=== PATIENT | female | born 1955 | race Caucasian/White ===

== ENCOUNTER 2018-11-08 12:29 | Outpatient (CLI) | payer MEDICARE ==
--- NOTE | 2018-11-08 15:12 | NM ---
Radionucleotide hepatobiliary scan and gallbladder ejection fraction HISTORY: Right upper quadrant pain. Acute cholecystitis. FINDINGS: Early images show physiologic uptake of radiotracer throughout the hepatic parenchyma. Upta ke first seen within the small bowel at 17 minutes. Uptake within the gallbladder at 37 minutes. After administration of fatty meal, there is progressive excretion of radiotracer from the gallbladde r to the small bowel. Ejection fraction calculated at 93%. IMPRESSION: Hepatobiliary scan. Normal gallbladder ejection fraction.
== END 2018-11-08 12:30 | disposition home or self-care (01) ==
LOC: NM 12:29
PROVIDERS: ATTEND Specialist
DX: K81.0 Acute cholecystitis (principal)
CPT/HCPCS: 78227; A9537

== ENCOUNTER 2025-01-30 15:44 | Emergency (ER) | payer MEDICARE ==
[~2025-01-30 15:44] MED LIST: Iopamidol-370 76% 500 ML MDV (1 ML CHARGE) ONE
[2025-01-30] MEDS ORDERED: Ondansetron PF 4 MG/2 ML Vial ONE ×2 (16:14→17:56)
[2025-01-30] MEDS ORDERED: Ketorolac Tromethamine 30 MG (1 mL) VIAL ONE ×2 (16:14→17:56)
[2025-01-30] MEDS ORDERED: Famotidine/PF 20 mg/2ml Vial ONE (16:26)
[2025-01-30 16:34] LABS: #Basophils 0.06 10x3/uL (0.0-0.2); #Eosinophils 0.46 10x3/uL (0.0-0.7); #Monocytes 0.46 10x3/uL (0.11-0.59); #Neutrophils 2.83 10x3/uL (1.40-6.50); %Basophils 1.0 % (0.0-1.0); %Eosinophils 7.9 % (0.0-10.0); %Lymphocytes 34.0 % (21.0-51.0); %Monocytes 7.9 % (0.0-10.0); %Neutrophils 49.0 % (42.0-75.0); Hematocrit 39.0 % (36.0-47.0); Hemoglobin 13.1 g/dL (12.0-16.0); Mean Corpuscular Hemoglobin 30.5 pg (27.0-31.0); Mean Corpuscular Volume 90.7 fL (78.0-98.0); Platelet Count 233 10x3/uL (130-400); Red Blood Cell (RBC) Count 4.30 mill/uL (4.20-5.40); White Blood Cell (WBC) Count 5.79 10x3/uL (4.8-10.8)
[2025-01-30 16:49] LABS: ALT (SGPT) 14 U/L (Less than 34); AST (SGOT) 25 U/L (11-34); Albumin 4.1 g/dL (3.1-4.5); Alkaline Phosphatase 77 U/L (40-110); Anion Gap 15 mmol/L (10-20); BUN (Urea Nitrogen) 11 mg/dL (9.8-20.1); Bilirubin, Total 0.6 mg/dL (0.3-1.2); Calc. Creatinine Clearance 0 mL/min (70-130); Calcium 9.5 mg/dL (7.8-10.44); Carbon Dioxide 25 mmol/L (23-31); Chloride 107 mmol/L (98-107); Globulin 3.2 g/dL (2.4-3.5); Glucose 85 mg/dL (83-110); Lipase 46 U/L (8-78); Potassium 4.0 mmol/L (3.5-5.1); Sodium 143 mmol/L (136-145)
[2025-01-30 17:07] LABS: Bacteria/HPF None Seen HPF (None Seen); CAUTI Indications for Culture Pelvic or flank pain; Glucose, Urine (Dipstick) Normal (Negative); Leukocyte Negative Leu/uL (Negative); Protein, Urine (Dipstick) Negative (Neg-Trace); RBC/HPF 0-3 HPF (0-3); Specific Gravity, Urine 1.010 (1.002-1.036); WBC/HPF 0-3 HPF (0-3)
[2025-01-30 17:08] LABS: Urine Culture Reflex No No
[2025-01-30] MEDS ORDERED: Mag-Al 1200 mg/1200 mg/30 ML UDCUP ONE (17:56)
[2025-01-30] MEDS ORDERED: Lidocaine Viscous Sol 2% 15 ml UD Cup ONE (17:57)
== END 2025-01-30 20:26 | disposition home or self-care (01) ==
LOC: ERS 15:44
DX: K52.9 Noninfective gastroenteritis and colitis, unspecified (principal); K57.30 Diverticulosis of large intestine without perforation or abscess without bleeding
CPT/HCPCS: 74177; 76705; 80053; 81001; 83690; 84484 ×2; 85025; 93005; J1308; J1885; J2405; J3010; 36415; 96374; 96375; 96376; Q9967